=== PATIENT | female | born 1980 | race Caucasian/White ===

== ENCOUNTER → 2024-03-14 11:29 | Outpatient (CLI) | payer BC, SELFPAY | PROVIDERS: Visit Provider Surgery | DX: L59.8 Other specified disorders of the skin and subcutaneous tissue related to radiation (principal); M27.2 Inflammatory conditions of jaws | CPT/HCPCS: 99204; 99212 ==

== ENCOUNTER → 2024-03-18 08:06 | Outpatient (CLI) | payer OTHER, SELFPAY | PROVIDERS: Visit Provider Surgery | DX: L59.8 Other specified disorders of the skin and subcutaneous tissue related to radiation (principal); M27.2 Inflammatory conditions of jaws | CPT/HCPCS: 99183; G0277 ==

== ENCOUNTER → 2024-03-19 08:08 | Outpatient (CLI) | payer OTHER, SELFPAY | LOC: WC 08:09 | PROVIDERS: Visit Provider Surgery | DX: L59.8 Other specified disorders of the skin and subcutaneous tissue related to radiation (principal); M27.2 Inflammatory conditions of jaws | CPT/HCPCS: 99183; G0277 ==

== ENCOUNTER → 2024-03-20 08:26 | Outpatient (CLI) | payer OTHER, SELFPAY | LOC: WC 08:28 | PROVIDERS: Visit Provider Surgery | DX: L59.8 Other specified disorders of the skin and subcutaneous tissue related to radiation (principal); M27.2 Inflammatory conditions of jaws | CPT/HCPCS: 99183; G0277 ==

== ENCOUNTER → 2024-03-21 08:22 | Outpatient (CLI) | payer OTHER, SELFPAY | LOC: WC 08:22 | PROVIDERS: Visit Provider Surgery | DX: L59.8 Other specified disorders of the skin and subcutaneous tissue related to radiation (principal); M27.2 Inflammatory conditions of jaws | CPT/HCPCS: 99183; G0277 ==

== ENCOUNTER → 2024-03-22 08:59 | Outpatient (CLI) | payer OTHER, SELFPAY | LOC: WC 08:59 | PROVIDERS: Visit Provider Physician Assistant | DX: L59.8 Other specified disorders of the skin and subcutaneous tissue related to radiation (principal); M27.2 Inflammatory conditions of jaws | CPT/HCPCS: 99183; G0277 ==

== ENCOUNTER → 2024-03-25 08:53 | Outpatient (CLI) | payer OTHER, SELFPAY | LOC: WC 08:54 | PROVIDERS: Visit Provider Surgery | DX: L59.8 Other specified disorders of the skin and subcutaneous tissue related to radiation (principal); M27.2 Inflammatory conditions of jaws | CPT/HCPCS: 99183; G0277 ==

== ENCOUNTER → 2024-03-26 09:13 | Outpatient (CLI) | payer OTHER, SELFPAY | LOC: WC 09:15 | PROVIDERS: Referring Provider Physician Assistant; Visit Provider Surgery | DX: L59.8 Other specified disorders of the skin and subcutaneous tissue related to radiation (principal); M27.2 Inflammatory conditions of jaws | CPT/HCPCS: 99183; G0277 ==

== ENCOUNTER → 2024-03-28 10:10 | Outpatient (CLI) | payer OTHER, SELFPAY | LOC: WC 10:11 | PROVIDERS: Visit Provider Surgery | DX: L59.8 Other specified disorders of the skin and subcutaneous tissue related to radiation (principal); M27.2 Inflammatory conditions of jaws | CPT/HCPCS: 99183; G0277 ==

== ENCOUNTER → 2024-03-29 09:06 | Outpatient (CLI) | payer OTHER, SELFPAY | LOC: WC 09:07 | PROVIDERS: Visit Provider Physician Assistant | DX: L59.8 Other specified disorders of the skin and subcutaneous tissue related to radiation (principal); M27.2 Inflammatory conditions of jaws | CPT/HCPCS: 99183; G0277 ==

== ENCOUNTER → 2024-04-01 08:41 | Outpatient (CLI) | payer OTHER, SELFPAY | LOC: WC 08:41 | PROVIDERS: Referring Provider Physician Assistant; Visit Provider Surgery | DX: L59.8 Other specified disorders of the skin and subcutaneous tissue related to radiation (principal); M27.2 Inflammatory conditions of jaws | CPT/HCPCS: 99183; G0277 ==

== ENCOUNTER → 2024-04-02 09:05 | Outpatient (CLI) | payer BC, SELFPAY | PROVIDERS: Referring Provider Physician Assistant; Visit Provider Surgery | DX: L59.8 Other specified disorders of the skin and subcutaneous tissue related to radiation (principal); M27.2 Inflammatory conditions of jaws | CPT/HCPCS: 99183; G0277 ==

== ENCOUNTER → 2024-04-03 09:04 | Outpatient (CLI) | payer OTHER, SELFPAY | LOC: WC 09:05 | PROVIDERS: Referring Provider Physician Assistant; Visit Provider Surgery | DX: L59.8 Other specified disorders of the skin and subcutaneous tissue related to radiation (principal); M27.2 Inflammatory conditions of jaws | CPT/HCPCS: 99183; G0277 ==

== ENCOUNTER → 2024-04-04 11:07 | Outpatient (CLI) | payer OTHER, SELFPAY | LOC: WC 11:07 | PROVIDERS: Visit Provider Surgery | DX: L59.8 Other specified disorders of the skin and subcutaneous tissue related to radiation (principal); M27.2 Inflammatory conditions of jaws | CPT/HCPCS: 99183; G0277 ==

== ENCOUNTER → 2024-04-05 08:54 | Outpatient (CLI) | payer BC, SELFPAY | PROVIDERS: Referring Provider Physician Assistant; Visit Provider Physician Assistant | DX: L59.8 Other specified disorders of the skin and subcutaneous tissue related to radiation (principal); M27.2 Inflammatory conditions of jaws | CPT/HCPCS: 99183; G0277 ==

== ENCOUNTER → 2024-04-08 08:40 | Outpatient (CLI) | payer BC, SELFPAY | PROVIDERS: Referring Provider Physician Assistant; Visit Provider Surgery | DX: L59.8 Other specified disorders of the skin and subcutaneous tissue related to radiation (principal); M27.2 Inflammatory conditions of jaws | CPT/HCPCS: 99183; G0277 ==

== ENCOUNTER → 2024-04-09 08:50 | Outpatient (CLI) | payer BC, SELFPAY | PROVIDERS: Referring Provider Physician Assistant; Visit Provider Surgery | DX: L59.8 Other specified disorders of the skin and subcutaneous tissue related to radiation (principal); M27.2 Inflammatory conditions of jaws | CPT/HCPCS: 99183; G0277 ==

== ENCOUNTER → 2024-04-10 09:11 | Outpatient (CLI) | payer BC, SELFPAY | PROVIDERS: Referring Provider Physician Assistant; Visit Provider Surgery | DX: L59.8 Other specified disorders of the skin and subcutaneous tissue related to radiation (principal); M27.2 Inflammatory conditions of jaws | CPT/HCPCS: 99183; G0277 ==

== ENCOUNTER → 2024-04-11 10:10 | Outpatient (CLI) | payer BC, SELFPAY | PROVIDERS: Referring Provider Physician Assistant; Visit Provider Physician Assistant | DX: L59.8 Other specified disorders of the skin and subcutaneous tissue related to radiation (principal); M27.2 Inflammatory conditions of jaws | CPT/HCPCS: 99183; G0277 ==

== ENCOUNTER → 2024-04-12 09:22 | Outpatient (CLI) | payer BC, SELFPAY | PROVIDERS: Referring Provider Physician Assistant; Visit Provider Physician Assistant | DX: L59.8 Other specified disorders of the skin and subcutaneous tissue related to radiation (principal); M27.2 Inflammatory conditions of jaws | CPT/HCPCS: 99183; G0277 ==

== ENCOUNTER → 2024-04-15 08:23 | Outpatient (CLI) | payer BC, SELFPAY | PROVIDERS: Referring Provider Physician Assistant; Visit Provider Surgery | DX: L59.8 Other specified disorders of the skin and subcutaneous tissue related to radiation (principal); M27.2 Inflammatory conditions of jaws | CPT/HCPCS: 99183; G0277 ==

== ENCOUNTER → 2024-04-17 08:53 | Outpatient (CLI) | payer BC, SELFPAY | PROVIDERS: Referring Provider Physician Assistant; Visit Provider Surgery | DX: L59.8 Other specified disorders of the skin and subcutaneous tissue related to radiation (principal); M27.2 Inflammatory conditions of jaws | CPT/HCPCS: 99183; G0277 ==

== ENCOUNTER → 2024-04-18 08:42 | Outpatient (CLI) | payer BC, SELFPAY | PROVIDERS: Referring Provider Physician Assistant; Visit Provider Surgery | DX: L59.8 Other specified disorders of the skin and subcutaneous tissue related to radiation (principal); M27.2 Inflammatory conditions of jaws | CPT/HCPCS: 99183; G0277 ==

== ENCOUNTER → 2024-04-19 08:53 | Outpatient (CLI) | payer BC, SELFPAY | PROVIDERS: Referring Provider Physician Assistant; Visit Provider Physician Assistant | DX: L59.8 Other specified disorders of the skin and subcutaneous tissue related to radiation (principal); M27.2 Inflammatory conditions of jaws | CPT/HCPCS: 99183; G0277 ==

== ENCOUNTER → 2024-04-22 08:47 | Outpatient (CLI) | payer BC, SELFPAY | PROVIDERS: Referring Provider Physician Assistant; Visit Provider Surgery | DX: L59.8 Other specified disorders of the skin and subcutaneous tissue related to radiation (principal); M27.2 Inflammatory conditions of jaws | CPT/HCPCS: 99183; G0277 ==

== ENCOUNTER → 2024-04-23 09:00 | Outpatient (CLI) | payer BC, SELFPAY | PROVIDERS: Referring Provider Physician Assistant; Visit Provider Surgery | DX: L59.8 Other specified disorders of the skin and subcutaneous tissue related to radiation (principal); M27.2 Inflammatory conditions of jaws | CPT/HCPCS: 99183; G0277 ==

== ENCOUNTER → 2024-04-24 09:01 | Outpatient (CLI) | payer BC, SELFPAY | PROVIDERS: Referring Provider Physician Assistant; Visit Provider Surgery | DX: L59.8 Other specified disorders of the skin and subcutaneous tissue related to radiation (principal); M27.2 Inflammatory conditions of jaws | CPT/HCPCS: 99183; G0277 ==

== ENCOUNTER → 2024-04-25 08:42 | Outpatient (CLI) | payer BC, SELFPAY | PROVIDERS: Referring Provider Physician Assistant; Visit Provider Surgery | DX: L59.8 Other specified disorders of the skin and subcutaneous tissue related to radiation (principal); M27.2 Inflammatory conditions of jaws | CPT/HCPCS: 99183; G0277 ==

== ENCOUNTER → 2024-04-26 08:40 | Outpatient (CLI) | payer BC, SELFPAY | PROVIDERS: Referring Provider Physician Assistant; Visit Provider Physician Assistant | DX: L59.8 Other specified disorders of the skin and subcutaneous tissue related to radiation (principal); M27.2 Inflammatory conditions of jaws | CPT/HCPCS: 99183; G0277 ==

== ENCOUNTER → 2024-04-29 08:29 | Outpatient (CLI) | payer BC, SELFPAY | PROVIDERS: Referring Provider Physician Assistant; Visit Provider Surgery | DX: L59.8 Other specified disorders of the skin and subcutaneous tissue related to radiation (principal); M27.2 Inflammatory conditions of jaws | CPT/HCPCS: 99183; G0277 ==

== ENCOUNTER → 2024-04-30 10:36 | Outpatient (CLI) | payer BC, SELFPAY | LOC: WC 10:37 | PROVIDERS: Visit Provider Surgery | DX: L59.8 Other specified disorders of the skin and subcutaneous tissue related to radiation (principal); M27.2 Inflammatory conditions of jaws | CPT/HCPCS: 99183; G0277 ==